=== PATIENT | female | born 1970 | race Caucasian/White ===

== ENCOUNTER → 2018-08-03 | Outpatient (CLI) | payer BC ==
--- NOTE | 2018-08-03 09:39 | US ---
EXAMINATION TYPE: US kidneys/renal and bladder DATE OF EXAM: 08/03/2018 COMPARISON: NONE CLINICAL HISTORY: R31.9 Hematuria. Recurrent UTI's EXAM MEASUREMENTS: Right Kidney: 11.2 x 4.9 x 4.0 cm Left Kidney: 11.9 x 4.9 x 4.6 cm Post Void Residual Volume: 8.1 mL Right Kidney: No hydronephrosis, nephrolithiasis or masses seen Left Kidney: No hydronephrosis, nephrolithiasis or masses seen Bladder: wnl Bilateral Jets seen: Yes Normal Post Void Residual: Yes IMPRESSION: No acute abnormality identified. There is soft tissue prominence likely related to a prominent sized uterus which is only partially included on exam of the kidneys and bladder and could be correlated wi pelvic ultrasound as clinically warranted.
== END | disposition home or self-care (01) ==
LOC: RADUSWWP 08:58
PROVIDERS: ATTEND Internal Medicine Geriatric Medicine
DX: R31.9 Hematuria, unspecified (principal)
CPT/HCPCS: 76770

== ENCOUNTER → 2018-09-12 | Outpatient (CLI) | payer BC ==
--- NOTE | 2018-09-13 07:32 | CT ---
EXAMINATION TYPE: CT urogram wo/w con DATE OF EXAM: 09/12/2018 COMPARISON: Renal ultrasound dated 08/03/2018 HISTORY: Hematuria CT DLP: 793.1 mGycm CONTRAST: Performed and without and with IV Contrast, patient injected with 100 mL of Isovue 300. CT Urography was performed with unenhanced followed by enhanced images of the kidneys, ureters and ur inary bladder. Delayed images were obtained. 3d reconstruction was perfromed at a separate work sta tion. FINDINGS: KIDNEYS/BLADDER: No hydronephrosis. No nephrolithiasis. No distinct renal mass. Urinary bladder gr ossly unremarkable. LUNG BASES-: No visible nodule. No infiltrate. LIVER/GB: No calcified gallstones. No space occupying hepatic lesion. Biliary tree is of normal ca liber. PANCREAS: No inflammation. No distinct mass. SPLEEN: No splenic enlargement. No lesion seen. ADRENALS: No nodule. No thickening. BOWEL: Normal appendix. Normal bowel caliber. No inflammation. GENITAL ORGANS: The uterus appears to be enlarged without distinct mass. Left ovarian cyst identified measuring 1.5 cm. The right ovary is unremarkable. LYMPH NODES: No greater than 1cm abdominal or pelvic lymph nodes are appreciated. AORTA: No significant abnormality. OSSEOUS STRUCTURES: L5-S1 vacuum disc. OTHER: No significant additional abnormality is seen. IMPRESSION: 1. No distinct abnormality to account for the patient's symptoms of hematuria. Correlate clinically. 2. Enlarged uterus. Correlate with a pelvic ultrasound as clinically warranted. Left ovarian cyst as discussed.
== END | disposition home or self-care (01) ==
LOC: RADCTMAIN 14:04
PROVIDERS: ATTEND Family Medicine
DX: R31.9 Hematuria, unspecified (principal); N85.2 Hypertrophy of uterus; N83.202 Unspecified ovarian cyst, left side
CPT/HCPCS: 74178; 36415; 74400; Q9967

== ENCOUNTER → 2020-04-01 | Outpatient (CLI) | payer BC ==
--- NOTE | 2020-04-01 11:10 | CT ---
EXAMINATION TYPE: CT lumbar spine wo con DATE OF EXAM: 04/01/2020 11:00 AM COMPARISON: MRI lumbar spine July 25, 2013. Outside lumbar spine x-ray March 19, 2020 HISTORY: Lumbago. Low back pain into hip for [address] DLP: 770 mGycm Automated exposure control for dose reduction was used. Unenhanced CT of the lumbar spine was performed. Bone and soft tissue window settings are submitted as well as coronal and sagittal reconstructions. There is a sacralized L5 segment bilaterally redemonstrated. Alignment is stable with slight grade 1 retrolisthesis L4 on L5. Moderate to severe disc space narrowing with endplate sclerosis and vacuum d isc phenomenon and mild to moderate anterior and lateral spurring at L4-L5 level is present. Vertebra l body heights are maintained. Disc space heights otherwise are satisfactory. Axial images at the labeled T12-L1, L1-L2, and L2-L3 levels remain within normal limits. Axial images at the L3-L4 level mild/moderate broad disc bulge effacing the anterior thecal sac with mild facet degenerative changes and ligamentum flavum hypertrophy effacing posterior lateral thecal s ac on axial image 41, bilateral neural foramina remain patent. Axial images at L4-L5 level shows spondylosis with posterior spur disc complex and ceuz-ja-[id number] f acet arthropathy bilaterally. There is effacement of the anterior thecal sac. There is moderate bilat eral neural foraminal narrowing redemonstrated. Axial images at the L5-S1 level show mild to moderate facet arthropathy. Spinal canal is preserved. P atent bilateral neural foramina. Patient has little intra-abdominal fat. Paraspinal muscle bulk is maintained. IMPRESSION: Sacralized L5 segment. Spondylolisthesis and degenerative change L4-L5 level as detailed above.
== END | disposition home or self-care (01) ==
LOC: RADCTMAIN 10:38
PROVIDERS: ATTEND Orthopaedic Surgery
DX: M43.16 Spondylolisthesis, lumbar region (principal); M47.816 Spondylosis without myelopathy or radiculopathy, lumbar region
CPT/HCPCS: 72131

== ENCOUNTER → 2020-04-15 | Outpatient (CLI) | payer BC ==
--- NOTE | 2020-04-15 12:21 | MR ---
EXAMINATION TYPE: MR lumbar spine wo con DATE OF EXAM: 04/15/2020 12:02 PM COMPARISON: NONE HISTORY: Low back pain Multiplanar, MultiSpin echo imaging of the lumbar spine was performed. There appears to be a transitional vertebral segment with partial lumbarization of S1 and rudimentary S1-S2 disc. L1-L2: Normal disc appearance without desiccation. No herniation, protrusion or disc bulging. No ca nal stenosis is present. Foramina are patent bilaterally. L2-L3: Normal disc appearance without desiccation. No herniation, protrusion or disc bulging. No ca nal stenosis is present. Foramina are patent bilaterally. L3-L4: Normal disc appearance without desiccation. No herniation, protrusion or disc bulging. No ca nal stenosis is present. Foramina are patent bilaterally. L4-L5: Mild degenerative disc disease with mild posterior disc bulge. No herniation or protrusion. No central stenosis. L5-S1: Severe degenerative disc space narrowing and vacuum disc. Posterior disc bulge. Mild effacemen t ventral thecal sac. Degenerative endplate marrow change. Facet joint arthropathy resulting in mild bilateral foraminal encroachment. Lumbar segments are intact. No paraspinal masses are identified. Conus medullaris has a normal appe arance. IMPRESSION: 1. Severe degenerative disc disease with posterior disc bulge at L5-S1. No herniation or central sten osis. Mild bilateral foraminal encroachment.
== END | disposition home or self-care (01) ==
LOC: RADMRIMAIN 11:19
PROVIDERS: ATTEND Orthopaedic Surgery
DX: M51.27 Other intervertebral disc displacement, lumbosacral region (principal); M51.36 Other intervertebral disc degeneration, lumbar region
CPT/HCPCS: 72148

== ENCOUNTER 2020-06-09 13:29 | Day surgery (SDC) | payer BC ==
[2020-06-08 08:37] VITALS: BMI 20.2
[~2020-06-09 13:29] MED LIST: LACTATED RINGERS 1,000 ML IV SCH
[2020-06-09 14:08] VITALS: TEMP 97
[2020-06-09] MEDS ORDERED: IOPAMIDOL M200 10 ML VIAL ONE (14:30)
[2020-06-09] MEDS ORDERED: MIDAZOLAM 2 MG/2 ML VIAL ONE (14:30)
[2020-06-09] MEDS ORDERED: methylPREDNISolone ACETATE 40 MG/ML 1 ML VIAL ONE (14:30)
[2020-06-09] MEDS ORDERED: fentaNYL (PF) 50 MCG/ML 2 ML AMP ONE (14:30)
--- NOTE | 2020-06-09 14:41 | P.PCN ---
Date of Procedure: 06/09/20 Procedure(s) Performed: PREOPERATIVE DIAGNOSIS: Lumbar radiculopathy . POSTOPERATIVE DIAGNOSIS: Same as preoperative diagnoses. PROCEDURE 1. Transforaminal epidural steroid injection under fluoroscopic guidance at right L4-5 level. (Fluoroscopy images stored on file in the radiology Department ) 2. Lumbar epidurogram . ANESTHESIA: Local with 1% lidocaine 3 ml , moderate sedation with intravenous Versed 1 mg and fentanyle 50 micrograms. EBL: Minimal PROCEDURE INDICATION: The patient with low back pain and radiculopathy symptoms unresponsive to conservative treatment. PROCEDURE DESCRIPTION / TECHNIQUE: The patient was seen and identified in the preoperative area. Risks, benefits, complications, and alternatives were discussed with the patient. The patient agreed to proceed with the procedure and signed the consent. IV was started, and vital signs were stable. Patient was taken to the OR and time out was completed. The patient was placed in the prone position on procedure table and a pillow was placed under the abdomen to reduce lumbar lordosis. The lumbosacral area was prepped and draped in the usual sterile fashion. Critical pause was taken. Vital signs were closely monitored during the procedure. Conscious sedation was used during the procedure to decrease patient s anxiety. Using oblique fluoroscopy, the chin of the ``Nestor dog at Right L4-5 level was identified, and the skin and deeper tissues just below was localized with 1% lidocaine. Subsequently, a 22-gauge 3.5-inch spinal needle was advanced under a tunneled view fluoroscopic guidance just underneath the chin of the ``Nestor dog at the right L4-5 Under lateral fluoroscopy, the needle was then advanced to the posterior border of the interforaminal space. After negative aspiration of CSF and blood and with no paresthesias, 1 mL Isovue 200 contrast dye was injected excellent epidurogram and outlining of the nerve root Subsequently, 3 mL of block solution containing 80 mg Depo-Medrol and 2 mL of 0.9% normal saline PF was injected. Needle was removed . At the end of the procedure, skin was cleansed, and bandages were applied. COMPLICATIONS:none DISPOSITION / PLANS: The patient was placed in a supine position and transferred to the recovery area in a stable condition for observation. There was no evidence of lower extremity motor or sensory deficit after the procedure. Patient was discharged from the recovery room after meeting discharge criteria. Home discharge instructions were given to the patient by the staff. The patient was reexamined prior to discharge.
[2020-06-09 14:44] VITALS: RESP 16
[2020-06-09 14:59] VITALS: BP 94/59; PULSE 63
[2020-06-09] MEDS ORDERED: IV FLUID CONTINUATION 1,000 ML IV ONE (14:59)
--- NOTE | 2020-06-09 15:48 | FL ---
EXAMINATION TYPE: FL guided pain mgmt statistic DATE OF EXAM: 06/09/2020 CLINICAL HISTORY: Low back pain. TECHNIQUE: Fluoroscopy. COMPARISON: None. FINDINGS: Fluoroscopic guidance was provided during pain relief procedure performed by Dr. Carter . A total of 2 seconds of fluoroscopic time was utilized during the procedure and 1 spot images are acquired. Single image acquired shows needle localization at L4 level with contrast injection. IMPRESSION: As Above.
== END 2020-06-09 15:11 | disposition home or self-care (01) ==
LOC: ORPAIN 13:29
PROVIDERS: ATTEND Specialist
DX: M54.16 Radiculopathy, lumbar region (principal)
CPT/HCPCS: 64483; J2250; J1030; J3010; Q9966

== ENCOUNTER → 2020-07-27 | Outpatient (CLI) | payer BC ==
[2020-07-27 09:55] VITALS: BP 114/69; PULSE 77; RESP 18; TEMP 98.2
--- NOTE | 2020-07-27 10:01 | P.PAINCN ---
History of Present Illness - Reason for Consult Consult date: 07/27/20 - History of Present Illness This is a 49-year-old patient referred by Dr. Mooney for a right L4-L5 transforaminal epidural steroid injection which she just had. Recap patient has been having right-sided low back with occasional radiation down the lateral aspect of the lower extremities the knee for some time. Pain is described as sharp and stabbing and worse in the back compared to the leg. Also feels some numbness and tingling in the knee area. Most recent transforaminal epidural steroid injection L4-L5 on the right side provided 80-90% relief for about 5 days. He is interested in scheduling second injection Patient denies adverse drug effects from medications. Patient also denies new- onset weakness, bowel/bladder incontinence, or any other signs or symptoms of cauda equina syndrome. There are no signs of acute intoxication, and no indications of medication diversion or overuse. In addition to above, 13-point review of systems is also negative for chest pain, shortness of breath, changes in vision, changes in hearing, new onset weakness, abdominal pain, diarrhea, extreme fatigue, malaise, fever, skin changes, homicidal or suicidal ideation, or bowel or bladder incontinence. Physical exam: Vital Signs: Reviewed in EMR GENERAL: Well appearing, in no acute distress PSYCH: Mood and affect is appropriate. Awake, alert, and oriented SKIN: Skin color, texture, turgor normal, no rashes or lesions HEENT: Normocephalic, atraumatic. EOM intact CV: No pedal edema RESP: Respirations are unlabored, no audible wheezing GI: Abdomen non-distended MUSCULOSKELETAL: Bilateral upper and lower extremity strength is normal and symmetric. No atrophy or tone abnormalities are noted. Lumbar spine: Straight leg raising in the sitting position is positive on right side. some pain to palpation over the lumbar spine and paraspinous muscles on right side. Negative for pain with facet loading and back extension/rotation. Normal range of motion without pain reproduction Extremities: Peripheral joint ROM is full and pain free without obvious instability or laxity in all four extremities. No edema or skin discolorations noted. Gait: Gait is normal NEUR: Bilateral upper and lower extremity coordination and muscle stretch reflexes are physiologic and symmetric. Negative clonus. No loss of sensation is noted. Cranial nerves are grossly intact. Imaging: Lumbar MRI 03/2020 At the levels of L1-L2, L2-L3, L3-L4, there is a normal disc appearance without any desiccation. There is no evidence of any central canal or neural foraminal stenosis. L4-L5 there is some mild disc generative disease no central canal or foraminal stenosis. At L5-S1 there is severe disc degenerative narrowing as well as a posterior disc bulge. There is mild effacement of the ventral thecal sac. There is facet joint arthropathy resulting in mild bilateral foraminal encroachment. Assessment: 1. Lumbar spondylosis 2. Lumbar degenerative disc disease Plan: 1. Explanation: Diagnoses, prognoses, and multiple treatment options including but not limited to physical therapy, interventional therapies, medication management and surgery were discussed with the patient and all questions were answered to the patient's satisfaction. 2. Investigations: None 3. Counseling: The patient was counseled for 3 minutes on , EXERCISE. Specifically, the patient was instructed regarding the importance of exercise in the context of both chronic pain and overall health. 4. Procedures: We'll repeat right-sided L4-L5 transforaminal epidural steroid injection. Had A long discussion with her and her regarding her pain process and that she does not get prolonged relief from this injection. Outside of surgery, her 's father recently had radio frequency ablation is wondering if she would be a candidate for that if the epidural didn't last for long. Discussed the process of diagnostic medial branch blocks prior to proceeding to radiofrequency ablation and they understand that. If the epidurals are not helpful for prolonged periods time, first noted however to Dr. Fuentes to discuss this and then we can do this procedures if needed. I have spent 35 minutes with chart reviewing the patient, speaking to the patient, and discussing plan of care with the patient Past Medical History Past Medical History: Thyroid Disorder History of Any Multi-Drug Resistant Organisms: None Reported Past Surgical History: Section, Hernia Repair, Tonsillectomy Past Anesthesia/Blood Transfusion Reactions: No Reported Reaction Past Psychological History: No Psychological Hx Reported Smoking Status: Former smoker Past Alcohol Use History: Occasional Additional Past Alcohol Use History / Comment(s): quit smoking 2011 Past Drug Use History: None Reported - Past Family History Mother Family Medical History: No Reported History Medications and Allergies Home Medications Medication Instructions Recorded Confirmed Type Levothyroxine Sodium [Synthroid] 75 mcg PO DAILY 06/08/20 07/15/20 History Allergies Allergy/AdvReac Type Severity Reaction Status Date / Time No Known Allergies Allergy Verified 07/15/20 15:48 PQRS Measure Charge Sheet PQRS Narrative: Pain Intensity [Back] 6 Hx Alcohol Use (MH) Yes Home Medications: Ambulatory Orders Levothyroxine Sodium [Synthroid] 75 mcg PO DAILY 06/08/20
== END ==
LOC: PNWHC3 07-20 09:22
PROVIDERS: ATTEND Anesthesiology
DX: M47.816 Spondylosis without myelopathy or radiculopathy, lumbar region (principal); M51.36 Other intervertebral disc degeneration, lumbar region; Z87.891 Personal history of nicotine dependence
CPT/HCPCS: 99211

== ENCOUNTER 2020-08-25 11:28 | Day surgery (SDC) | payer BC ==
[2020-08-24 12:17] VITALS: BMI 20.2
[2020-08-25 11:55] VITALS: TEMP 97.8
[2020-08-25] MEDS ORDERED: LACTATED RINGERS 1,000 ML IV ONE (12:02)
[2020-08-25] MEDS ORDERED: LIDOCAINE 1% (10MG/ML) FOR IV START INTRADERMA ONE (12:02)
[2020-08-25] MEDS ORDERED: LIDOCAINE 1% INJ 10MG/ML (20 ML MDV) ONE (12:45)
[2020-08-25] MEDS ORDERED: IOPAMIDOL M200 10 ML VIAL ONE (12:45)
[2020-08-25] MEDS ORDERED: MIDAZOLAM 2 MG/2 ML VIAL ONE (12:45)
[2020-08-25] MEDS ORDERED: DEXAMETHASONE SOD PHOSPHATE 10 MG/ML 1 ML VIAL ONE (12:45)
[2020-08-25] MEDS ORDERED: fentaNYL (PF) 50 MCG/ML 2 ML AMP ONE (12:45)
--- NOTE | 2020-08-25 13:03 | P.PCN ---
Date of Procedure: 08/25/20 Surgeon: Ilda Rowe Pathology: none sent Condition: stable Disposition: PACU Description of Procedure: PREOPERATIVE DIAGNOSIS: Lumbar radiculopathy POSTOPERATIVE DIAGNOSIS: Lumbar radiculopathy PROCEDURE 1. Transforaminal epidural steroid injection under fluoroscopic guidance at right L4 5 level 2. Lumbar epidurogram. SURGEON: Ilda Rowe MD PERSON[employer] INSURANCE AGENT: ANESTHESIA: Local with 1% lidocaine; IV sedation with Versed and fentanyl. EBL: Minimal PROCEDURE INDICATION: The patient with low back pain and radiculopathy symptoms unresponsive to conservative treatment. PROCEDURE DESCRIPTION / TECHNIQUE: The patient was seen and identified in the preoperative area. Risks, benefits, complications, and alternatives were discussed with the patient. The patient agreed to proceed with the procedure and signed the consent. IV was started, and vital signs were stable. Patient was taken to the OR and time out was completed. The patient was placed in the prone position on procedure table and a pillow was placed under the abdomen to reduce lumbar lordosis. The lumbosacral area was prepped and draped in the usual sterile fashion. Critical pause was taken. Vital signs were closely monitored during the procedure. Conscious sedation was used during the procedure to decrease patients anxiety. The vertebral body of the lumbar vertebra L4 was squared off by tilting the C-arm cephalad then the C-arm was tilted to the oblique position and the target point was at the 6 o'clock position of the pedicle of then skin and deeper tissues were localized with 1% lidocaine. Subsequently, a 22-gauge 3.5- inch spinal needle was advanced under a tunneled view fluoroscopic guidance just underneath the chin of the Nestor dog at the . Under lateral fluoroscopy, the needle was then advanced to the middle of the upper one third of the foramen between( L4-5). After negative aspiration of CSF and blood and with no paresthesias, 1 mL of omnipaque contrast dye was injected excellent epidurogram and outlining of the L nerve root was identified. Subsequently, 2 mL of block solution containing 10 mg of Decadron and 1 mL of Lidocaine 1% PF was injected. Needle was removed and the same . At the end of the procedure, skin was cleansed, and bandages were applied. COMPLICATIONS: None COMMENTS: DISPOSITION / PLANS: The patient was placed in a supine position and transferred to the recovery area in a stable condition for observation. There was no evidence of lower extremity motor or sensory deficit after the procedure. Patient was discharged from the recovery room after meeting discharge criteria. Home discharge instructions were given to the patient by the staff.
[2020-08-25] MEDS ORDERED: IV FLUID CONTINUATION 700 ML IV ONE (13:08)
[2020-08-25 13:16] VITALS: RESP 16
[2020-08-25 13:41] VITALS: BP 97/63; PULSE 60
--- NOTE | 2020-08-26 10:34 | FL ---
Fluoroscopy INDICATION: Pain FINDINGS: Fluoroscopy time: 12 seconds. Images obtained: 2. IMPRESSIONS: 1. Documentation of fluoroscopy.
== END 2020-08-25 13:38 | disposition home or self-care (01) ==
LOC: ORPAIN 11:28
PROVIDERS: ATTEND Anesthesiology
DX: M54.16 Radiculopathy, lumbar region (principal); E07.9 Disorder of thyroid, unspecified
CPT/HCPCS: 81025; 64483; J2250; J1100; J2001 ×2; J3010; Q9966; 99152

== ENCOUNTER → 2022-12-20 | Outpatient (CLI) | payer OTHER ==
--- NOTE | 2022-12-20 12:20 | XR ---
EXAMINATION TYPE: XR chest 2V DATE OF EXAM: 12/20/2022 COMPARISON: NONE HISTORY: Chest pain TECHNIQUE: Frontal and lateral views of the chest are obtained. FINDINGS: There is no focal air space opacity. No evidence for pneumothorax. No pleural effusion. The cardiac silhouette size is within normal limits. The osseous structures are grossly intact. IMPRESSION: 1. No acute cardiopulmonary process.
== END | disposition home or self-care (01) ==
LOC: RADXRMAIN 11:55
PROVIDERS: ATTEND Internal Medicine Geriatric Medicine
DX: R06.02 Shortness of breath (principal); R07.9 Chest pain, unspecified
CPT/HCPCS: 71046

== ENCOUNTER → 2023-06-02 | Outpatient (CLI) | payer BC ==
--- NOTE | 2023-06-13 09:20 | MM ---
Reason for Exam: Screening (asymptomatic). Last mammogram was performed 3 year(s) and 11 month(s) ago. Patient History: Menarche at age 13. First Full-Term at age 41. Late child-bearing (after 30). Patient has history of breast feeding. Maternal grandmother had ovarian cancer. Last menstrual period: 05/10/2023 Risk Values: Yuki 5 year model risk: 1.5%. NCI Lifetime model risk: 11.8%. Prior Study Comparison: 07/22/2011 Bilateral Screening Mammogram, [facility]. 06/19/2014 Bilateral Screening Mammogram, [facility]. 07/15/2019 Bilateral Screening Mammogram, [facility]. Tissue Density: The breast tissue is heterogeneously dense. This may lower the sensitivity of mammography. Findings: Analyzed By CAD. There is no suspicious group of microcalcifications or new suspicious mass. Overall Assessment: Negative, BI-RAD 1 Management: Screening Mammogram of both breasts in [address] [facility] will attempt to contact patient to return for supplemental views and ultrasound if indicated. Patient should continue monthly self-breast exams. A clinical breast exam by your physician is recommended on an annual basis. This exam should not preclude additional follow-up of suspicious palpable abnormalities. Note on Yuki scores and lifetime risk: 1. A Yuki score greater than 3% is considered moderate risk. If this is the case, consider specialist referral to assess eligibility for a risk reducing agent. 2. If overall lifetime risk for the development of breast cancer is 20% or higher, the patient may qualify for future screening with alternating mammogram and breast MRI. Electronically signed and approved by: Isaiah Dewey DO
== END | disposition home or self-care (01) ==
LOC: RADMAMWWP 13:14
PROVIDERS: ATTEND Obstetrics & Gynecology
DX: Z12.31 Encounter for screening mammogram for malignant neoplasm of breast (principal); Z80.41 Family history of malignant neoplasm of ovary
CPT/HCPCS: 77063; 77067

== ENCOUNTER → 2024-09-04 | Outpatient (CLI) | payer BC ==
--- NOTE | 2024-09-04 16:04 | MM ---
Reason for Exam: Screening (asymptomatic). Last mammogram was performed 1 year(s) and 3 month(s) ago. Patient History: Menarche at age 13. First Full-Term at age 41. Late child-bearing (after 30). Postmenopausal. Patient has history of breast feeding. Patient used Hormonal Contraceptives for 15 years. Maternal grandmother had ovarian cancer. Risk Values: Yuki 5 year model risk: 1.5%. NCI Lifetime model risk: 11.6%. Prior Study Comparison: 06/19/2014 Bilateral Screening Mammogram, [facility]. 07/15/2019 Bilateral Screening Mammogram, [facility]. 06/02/2023 Bilateral MG 3D screening mammo w/cad, [facility]. Tissue Density: The breasts are heterogeneously dense, which may obscure small masses. Findings: Analyzed By CAD. There is no suspicious group of microcalcifications or new suspicious mass in either breast. Overall Assessment: Negative, BI-RAD 1 Management: Screening Mammogram of both breasts in 1 year. Patient should continue monthly self-breast exams. A clinical breast exam by your physician is recommended on an annual basis. This exam should not preclude additional follow-up of suspicious palpable abnormalities. Note on Yuki scores and lifetime risk: 1. A Yuki score greater than 3% is considered moderate risk. If this is the case, consider specialist referral to assess eligibility for a risk reducing agent. 2. If overall lifetime risk for the development of breast cancer is 20% or higher, the patient may qualify for future screening with alternating mammogram and breast MRI. [facility], , 09/04/2024 4:01 PM. Electronically signed and approved by: Scotty Jones M.D. Radiologist
== END | disposition home or self-care (01) ==
LOC: RADMAMWWP 15:02
PROVIDERS: ATTEND Obstetrics & Gynecology
DX: Z12.31 Encounter for screening mammogram for malignant neoplasm of breast (principal); R92.333 Mammographic heterogeneous density, bilateral breasts; Z92.0 Personal history of contraception
CPT/HCPCS: 77067